=== PATIENT | female | born 1975 | race African-American/Black ===

== ENCOUNTER 2019-06-14 06:41 | Emergency (ER) | payer OTHER ==
[2019-06-14 06:43] VITALS: BP 124/72
[2019-06-14] MEDS ORDERED: AZIT250T6 PO (07:13)
[2019-06-14] MEDS ORDERED: GUAI473L15 PO (07:13)
[2019-06-14] MEDS ORDERED: DEXAMETHASONE SOD PHOS 10 MG/ML VIAL PO ONE (07:15)
--- NOTE | 2019-06-14 07:16 | PHYS DOC ---
Past History Past Medical History: Asthma, Diabetes, Hypertension Past Surgical History: No Surgical History Alcohol Use: None Drug Use: None Adult General Chief Complaint Chief Complaint: COUGH HPI HPI Patient is a 44-year-old female 1 week of cough productive of green-yellow sputum fever to 101 last night sore throat both kids have had strep throat in the last week or so. She went to the doctor she got some Tessalon Perles are not helping she wants promethazine with codeine as helped before. She has a history of diabetes history of asthma uses an inhaler as needed Review of Systems Review of Systems Constitutional: Denies fever or chills [] \ Cardiovascular: No additional information not addressed in HPI [] GI: Denies abdominal pain, nausea, vomiting, bloody stools or diarrhea [] : Denies dysuria or hematuria [] Musculoskeletal: Denies back pain or joint pain [] Integument: Denies rash or skin lesions [] All other systems were reviewed and found to be within normal limits, except as documented in this note. Current Medications Current Medications Current Medications Medications (Trade) Dose Ordered Sig/Anjel Start Time Stop Time Status Last Admin Dose Admin Dexamethasone Sodium Phosphate (Decadron) 6 mg 1X ONCE 06/14/19 07:15 06/14/19 07:16 UNV Allergies Allergies Allergies Coded Allergies Type Severity Reaction Last Updated Verified aspirin Allergy Intermediate 06/14/19 Yes ibuprofen Allergy Intermediate 06/14/19 Yes Physical Exam Physical Exam Constitutional: Well developed, well nourished, no acute distress, non-toxic appearance. [] HENT: Normocephalic, atraumatic, bilateral external ears normal, oropharynx mild to moderate erythema no exudate Eyes: PERRLA, EOMI, conjunctiva normal, no discharge. [] Neck: Normal range of motion, no tenderness, supple, no stridor. [] Cardiovascular:Heart rate regular rhythm, no murmur [] Lungs & Thorax: Bilateral breath sounds clear to auscultation [] Abdomen: Bowel sounds normal, soft, no tenderness, no masses, no pulsatile masses. [] Skin: Warm, dry, no erythema, no rash. [] Back: No tenderness, no CVA tenderness. [] Extremities: No tenderness, no cyanosis, no clubbing, ROM intact, no edema. [] Neurologic: Alert and oriented X 3, normal motor function, normal sensory function, no focal deficits noted. [] Psychologic: Affect normal, judgement normal, mood normal. [] Current Patient Data Vital Signs Vital Signs Date Time Temp Pulse Resp B/P (MAP) Pulse Ox O2 Delivery O2 Flow Rate FiO2 06/14/19 06:43 98.4 62 18 99 Room Air Lab Results ressure Systolic * 124 mm Hg (100-140) Blood Pressure Diastolic * 72 mm Hg (60-100) Blood Pressure Mean * 89 mm Hg EKG EKG [] Radiology/Procedures Radiology/Procedures [] Course & Med Decision Making Course & Med Decision Making Pertinent Labs and Imaging studies reviewed. (See chart for details) []Bronchitis approaching 10 days worsening febrile history of strep throat contact with erythematous tonsillar pillars. vitals normal patient is well- appearing overall prescriptions below return precautions discussed Dragon Disclaimer Dragon Disclaimer This electronic medical record was generated, in whole or in part, using a voice recognition dictation system. Departure Departure: Impression: Primary Impression: Bronchitis Disposition: HOME, SELF-CARE Condition: STABLE Patient Instructions: Bronchitis Scripts Guaifenesin/Codeine Phosphate (GUAIFENESIN AC COUGH SYRUP) 473 Ml Liquid 10 ML PO PRN Q4-6HRS PRN for cough and congestion MDD 60 Milliliter(s) for 4 Days, #240 ML 0 Refills Prov: KIT TREJO MD 06/14/19 Azithromycin (AZITHROMYCIN TABLET) 250 Mg Tablet 1 PKG PO UD for bronchitis for 5 Days, #6 TAB 0 Refills 2 the first day followed by 1 for days 2-5 Prov: KIT TREJO MD 06/14/19 KIT TREJO MD Jun 14, 2019 07:16
== END 2019-06-14 07:19 | disposition home or self-care (01) ==
LOC: ER 06:41
DX: J45.909 Unspecified asthma, uncomplicated (principal); E11.9 Type 2 diabetes mellitus without complications; I10 Essential (primary) hypertension; Z88.6 Allergy status to analgesic agent
CPT/HCPCS: 99283; J1100